=== PATIENT | female | born 1985 | race Caucasian/White ===

== ENCOUNTER 2025-06-21 12:58 | Emergency (ER) | payer OTHER ==
[~2025-06-21] VITALS: Ht 162.6 cm; Wt 72.7 kg
[~2025-06-21 12:58] MED LIST: ASPI-1450 PO; ATOR20TA PO; GABA-1216 PO
[2025-06-21 13:16] VITALS: TEMP 98.4
[2025-06-21] MEDS ORDERED: ONDANSETRON HCL 4 MG/2 ML VIAL IVP PRN (13:30)
[2025-06-21] MEDS ORDERED: OxyCODONE HCL/ACETAMINOPHEN 5-325 MG TABLET PO PRN (13:30)
[2025-06-21] MEDS ORDERED: ACETAMINOPHEN 325 MG TABLET PO PRN (13:30)
[2025-06-21] MEDS ORDERED: ZOLPIDEM TARTRATE 5 MG TABLET PO PRN (13:30)
[2025-06-21 13:40] VITALS: BP 133/98; PULSE 110; RESP 18; O2SAT 98
[2025-06-21] MEDS ORDERED: HYDROCODONE/ACETAMINOPHEN 5-325 MG TABLET PO PRN (13:45)
[2025-06-21] MEDS ORDERED: DOCUSATE SODIUM 100 MG CAPSULE PO SCH (21:00)
[2025-06-21] MEDS ORDERED: FAMOTIDINE 20 MG TABLET PO SCH (21:00)
[2025-06-22] MEDS ORDERED: ASPIRIN 81 MG CHEWABLE TABLET PO SCH (09:00)
[2025-06-22] MEDS ORDERED: ATORVASTATIN CALCIUM 20 MG TABLET PO SCH (09:00)
[2025-06-22] MEDS ORDERED: ENOXAPARIN SODIUM 30 MG/0.3 ML PF SYRINGE SQ SCH (09:00)
== END 2025-06-21 13:50 | disposition left against medical advice (07) ==
LOC: EMS 12:58
DX: T78.2XXA Anaphylactic shock, unspecified, initial encounter (principal); R00.2 Palpitations; R06.02 Shortness of breath; I13.2 Hypertensive heart and chronic kidney disease with heart failure and with stage 5 chronic kidney disease, or end stage renal disease; N18.6 End stage renal disease; Z79.82 Long term (current) use of aspirin; Z88.1 Allergy status to other antibiotic agents; Z88.8 Allergy status to other drugs, medicaments and biological substances; Z99.2 Dependence on renal dialysis; Z79.899 Other long term (current) drug therapy; Y92.89 Other specified places as the place of occurrence of the external cause
CPT/HCPCS: 93005; 99283

== ENCOUNTER 2025-07-26 16:48 | Emergency (ER) | payer OTHER ==
[~2025-07-26] VITALS: Ht 162.6 cm; Wt 65.0 kg
[2025-07-26 17:04] VITALS: BP 187/122; PULSE 84; RESP 16; TEMP 97.9; O2SAT 100
[2025-07-26] MEDS: MORPHINE SULFATE 2 MG/ML SYRINGE IM ONE (21:04)
[2025-07-26] MEDS: PHENAZOPYRIDINE HCL 100 MG TABLET PO ONE (21:04)
[2025-07-26 21:08] LABS: APPEARANCE,URINE HAZY (CLEAR); GLUCOSE, URINE (UA) 70-100 mg/dL (NEGATIVE); LEUKOCYTE ESTERASE ,URINE NEGATIVE (NEGATIVE); NITRATE,URINE NEGATIVE (NEGATIVE); OCCULT BLOOD,URINE SMALL (NEGATIVE); SPECIFIC GRAVITIY, URINE 1.018 (1.003-1.030)
[2025-07-26 21:15] LABS: RED BLOOD CELL COUNT(AUTO) 5.08 MIL/uL (4.00-5.20); RED CELL DISTRIBUTION WIDTH 18.7 % (11.5-14.5); WHITE BLOOD COUNT (AUTO) 3.3 K/uL (4.5-11.0)
[2025-07-26 21:21] LABS: PLATELET COUNT (AUTO) 55 K/uL (150-450)
[2025-07-26 21:23] LABS: CALCIUM, TOTAL 8.3 mg/dL (8.8-10.5); CREATININE 11.63 mg/dL (0.60-1.30); GLOMERULAR FILTR. RATE CALC 4.0 mL/min (>60); GLUCOSE,RANDOM 89.0 mg/dL (70-110); SODIUM SERUM 137.0 mmol/L (136-145); UREA NITROGEN, BLOOD 57.0 mg/dL (7-18)
[2025-07-26 21:27] LABS: SULFOSALICYLIC ACID,URINE 2+ (Negative)
[2025-07-26 21:28] LABS: SQUAMOUS EPITHELIAL CELL,UR Many /LPF (None Seen)
[2025-07-26 22:16] LABS: RBC MORPHOLOGY COMMENT ABNORMAL RBC MORPH
[2025-07-26] MEDS ORDERED: CEPH-558 PO (22:49)
[2025-07-26] MEDS: CEPHALEXIN MONOHYDRATE 500 MG CAPSULE PO ONE (23:05)
== END 2025-07-27 01:45 | disposition home or self-care (01) ==
LOC: EMS 17:17
DX: N39.0 Urinary tract infection, site not specified (principal); I50.9 Heart failure, unspecified; N89.8 Other specified noninflammatory disorders of vagina; Z79.82 Long term (current) use of aspirin; Z79.899 Other long term (current) drug therapy; Z88.1 Allergy status to other antibiotic agents; Z99.2 Dependence on renal dialysis; Z88.8 Allergy status to other drugs, medicaments and biological substances
CPT/HCPCS: 99283; 80048; 81001; 84702; 85025; 36415; 96372; J2270; 81002